=== PATIENT | male | born 1960 | race Caucasian/White ===

== ENCOUNTER → 2016-12-06 | Outpatient (CLI) | payer BC ==
--- NOTE | ~2016-12-06 | US77 ---
[facility] A Service of [facility] RADIOLOGY TEXT RESULTS PATIENT: PETEY LAW LOCATION: [facility] : 58 UNIT #: [id number] AGE: [address]: Thalia Fitzgerald MD SEX: M ORDER DR: [id number] [facility] [address] [place], [place] [address] [id number] O MR#: [id number] Acc #: [id number] NAME: PETEY LAW : 1960 SEX: M STUDY DATE/TIME: 12/06/2016 12:45 UNIT: [facility] ROOM: STUDY DESCRIPTION: US Kidney Bilateral Complete Attending Physician: Thalia Fitzgerald M.D. Referring Physician: Thalia Fitzgerald M.D. Ordering Physician: Thalia Fitzgerald M.D. Primary Care Physician: Luis Daniel Crooks M.D. MEDICAL IMAGING REPORT This report is preliminary unless electronic signature is present EXAM Bilateral renal ultrasound, 12/06/2016 HISTORY Chronic kidney disease stage IV, follow up. Hypertension. FINDINGS The right kidney measures 10.8 cm, while the left kidney measures 10.9 cm in longitudinal dimensions. There is no evidence of hydronephrosis or nephrolithiasis. There is a 5.4 cm cyst on the right kidney. No solid mass lesions are identified. There is increased renal cortical echogenicity, characteristic of medical renal disease. Images of the bladder are normal. IMPRESSION 1. Bilateral increase in renal cortical echogenicity, characteristic of medical renal disease. No evidence of hydronephrosis. 2. Right renal cyst. 3. Images of the bladder are normal. Dictated by... Amrik Gipson M.D. THIS IS AN ELECTRONICALLY VERIFIED REPORT Amrik Gipson M.D. at 12/13/2016 7:47 AM LARRY/carlota TD: 12/06/2016 20:12 JOB #: [id number] MEDICAL IMAGING REPORT Page 1 of 1 COPY
[2016-12-06 13:46] LABS: HEMATOCRIT 46.1 % (38.0-50.0); HEMOGLOBIN 15.9 gm/dL (13.0-16.0); MEAN CORPUSCULAR HEMOGLOBIN 34.1 PG (28-34); MEAN CORPUSCULAR HGB CONC 34.4 g/dL (30-36); MEAN PLATELET VOLUME 8.7 FL (6.5-11.5); RED BLOOD COUNT 4.65 X10e (3.90-5.60); RED CELL DISTRIBUTION WIDTH 12.9 % (11.0-15.5); WHITE BLOOD COUNT 6.5 X10e3 (4.0-10.5)
[2016-12-06 14:10] LABS: URINE APPEARANCE CLEAR; URINE BILIRUBIN NEG (NEG); URINE BLOOD 1+ (NEG); URINE COLOR YELLOW; URINE GLUCOSE 250 MG/DL (NEG); URINE KETONE NEG (NEG); URINE LEUKOCYTE ESTERASE NEG (NEG); URINE NITRATE NEG (NEG); URINE PROTEIN 3+ (NEG); URINE SPECIFIC GRAVITY 1.015 (1.003-1.035); URINE UROBILINOGEN 0.2 MG/DL (NEG)
[2016-12-06 14:13] LABS: URBCS1 AUWI 0-2 /[HPF] (0-2); URINE BACTERIA AUWI NEG (NEGATIVE); URINE SQUAMOUS EPITHELIAL CELL NONE SEEN /[HPF]; UWBCS1 AUWI 0-2 (0-5)
[2016-12-06 14:17] LABS: CULTURE INDICATED? NO
[2016-12-06 14:25] LABS: BILIRUBIN,TOTAL 0.7 mg/dL (0.2-2.0); BUN/CREATININE RATIO 10.93; CREATININE SERUM 3.2 mg/dL (0.6-1.4); GLOM FILT RATE Estimated 20.4 mL/min (>60); MAGNESIUM 1.7 mg/dL (1.6-3.0); PHOSPHOROUS 3.7 mg/dL (2.5-4.6); POTASSIUM 4.4 mmol/L (3.5-5.1)
[2016-12-06 15:06] LABS: URINE CREATININE 109.3 mg/dL
[2016-12-06 15:18] LABS: BODY SURFACE AREA 2.01; U PROTIEN QUANT CALCULATION 4.16 GM/24H (0.10-0.15)
[2016-12-10 15:44] LABS: PROTEIN/CREAT RATIO (UPE) 2773 (<=84); UPE ALPHA 1 5 % (()); UPE ALPHA 2 8 % (()); UPE BETA 12 % (()); UPE CREAT 1.77 g/24 h (0.63-2.50); UPE GAMMA 11 % (()); UPEALB (PNL) 63 % (()); UPETP24 (PNL) 4912 mg/24 h (<150); UPETV (PNL) 1600 mL (())
== END | disposition home or self-care (01) ==
LOC: CLAB 12:33 → CWCC 12:33
PROVIDERS: Emergency Medicine
DX: I12.9 Hypertensive chronic kidney disease with stage 1 through stage 4 chronic kidney disease, or unspecified chronic kidney disease (principal); N18.4 Chronic kidney disease, stage 4 (severe)
CPT/HCPCS: 36415; 76770; 80053; 81003; 82575; 83735; 84100; 84156; 84165; 84443; 85027; 86335